=== PATIENT | female | born 1990 | race Native Hawaiian/Other Pacific Islander ===

== ENCOUNTER 2016-08-16 20:20 | Emergency (ER) | payer BC ==
[2016-08-16 20:34] VITALS: RESP 20; TEMP 99
--- NOTE | 2016-08-16 21:33 | C.PDOC ---
History Of Present Illness A 25 year old female presents to the emergency room with complaints of right sided neck pain that radiates to the right upper back since yesterday. Patient also notes stiffness. Patient didn't take anything for pain. Patient denies any trauma/injury, any other pain, numbness, weakness, any sensory changes, chest pain, shortness of breath, or any other complaints. Time Seen by Provider: 08/16/16 20:52 Chief Complaint (Nursing): Back Pain History Per: Patient History/Exam Limitations: no limitations Onset/Duration Of Symptoms: Days (1) Current Symptoms Are (Timing): Still Present Quality Of Discomfort: "Pain", Other (Stiffness) Severity: Mild Previous Symptoms: None Associated Symptoms: denies: Incontinence, New Numbness Exacerbating Factor(s): Nothing Recent travel outside of the [place]: No Past Medical History Reviewed: Historical Data, Nursing Documentation, Vital Signs Vital Signs: Last Vital Signs Temp 99 F 08/16/16 21:34 Pulse 100 H 08/16/16 21:34 Resp 20 08/16/16 21:34 BP 120/90 08/16/16 21:34 Pulse Ox 100 08/16/16 21:34 Family History: States: No Known Family Hx - Social History Hx Alcohol Use: No Hx Substance Use: No - Immunization History Hx Tetanus Toxoid Vaccination: No Hx Influenza Vaccination: No Hx Pneumococcal Vaccination: No Review Of Systems Except As Marked, All Systems Reviewed And Found Negative. Constitutional: Negative for: Fever, Chills Cardiovascular: Negative for: Chest Pain Respiratory: Negative for: Shortness of Breath Gastrointestinal: Negative for: Nausea, Vomiting, Diarrhea Musculoskeletal: Positive for: Neck Pain (Right sided neck pain), Back Pain ( Right upper back pain), Other (Stiffness) Neurological: Negative for: Weakness, Numbness Physical Exam - Physical Exam Appears: Well, Non-toxic, No Acute Distress Skin: Normal Color, Warm, Dry Head: Atraumatic, Normacephalic Neck: Normal ROM, No Midline Cervical Tenderness, Paracervical Tenderness ( Right sided paracervical tenderness), Supple Chest: Symmetrical, No Deformity, No Tenderness Cardiovascular: Rhythm Regular Respiratory: Normal Breath Sounds, No Rales, No Rhonchi, No Wheezing Gastrointestinal/Abdominal: Soft, No Tenderness, No Guarding, No Rebound Back: Other (Right sided subscapular tenderness) Extremity: Normal ROM, No Tenderness Neurological/Psych: Oriented x3, Normal Speech, Normal Cognition, Normal Motor, Normal Sensation ED Course And Treatment O2 Sat by Pulse Oximetry: 95 Medical Decision Making Medical Decision Making: Impression: A 25 year old female with right sided neck pain and right upper back pain. Right sided paracervical and right sided subscapular tenderness noted on examination. Plan: -- Toradol & Valium Progress Notes: Patient received Toradol & Valium. On reassessment, patient is resting comfortably, and is in no acute distress. Patient was instructed to follow up with physician/clinic in 1-2 days for further evaluation. Disposition Counseled Patient/Family Regarding: Diagnosis, Need For Followup, Rx Given - Disposition Disposition: HOME/ ROUTINE Disposition Time: 21:30 Condition: STABLE Additional Instructions: Please follow up with PMD Take meds as directed Return to ER if worse Prescriptions: diaZEpam [Valium] 5 mg PO TID #10 tab Naproxen [Naprosyn] 1 tab PO BID PRN #25 tab PRN Reason: Pain Instructions: Cervical Strain (DC) - Clinical Impression Clinical Impression: Cervical strain - Scribe Statement The provider has reviewed the documentation as recorded by the Scribhaydee Gomez All medical record entries made by the Suhail were at my direction and personally dictated by me. I have reviewed the chart and agree that the record accurately reflects my personal performance of the history, physical exam, medical decision making, and the department course for this patient. I have also personally directed, reviewed, and agree with the discharge instructions and disposition.
[2016-08-16 21:35] VITALS: BP 120/90; PULSE 100
[2016-08-16 21:38] VITALS: O2SAT 95
== END 2016-08-16 21:40 | disposition home or self-care (01) ==
LOC: C.ER 20:20
DX: S16.1XXA Strain of muscle, fascia and tendon at neck level, initial encounter (principal); X58.XXXA Exposure to other specified factors, initial encounter
CPT/HCPCS: 96372; 99283; J1885